=== PATIENT | female | born 1950 | race Caucasian/White ===

== ENCOUNTER 2023-11-03 11:01 | Emergency (ER) | payer BC, OTHER ==
[2023-11-03] MEDS ORDERED: ATROPINE SULFATE 1 MG/10 ML DISP.SYRIN ONE (11:12)
[2023-11-03] MEDS ORDERED: SODIUM CHLORIDE 0.9% 500 ML INFUS.BAG IV ONE (11:20)
[2023-11-03 11:29] VITALS: RESP 17; TEMP 98.1; BMI 28.2
[2023-11-03] MEDS ORDERED: ATROPINE SULFATE 1 MG/10 ML DISP.SYRIN IVPUSH ONE (11:31)
[2023-11-03 11:54] LABS: INR 1.07 (0.83-1.09); PROTHROMBIN TIME (PATIENT) 12.4 SEC (9.7-13.0)
[2023-11-03 11:57] LABS: ACTIVATED PTT 28.9 SECONDS (25.2-36.5); HEMATOCRIT 46.3 % (32.4-45.2); HEMOGLOBIN 16.1 G/dL (10.7-15.3); MCH 34.3 pg (25.7-33.7); MCHC 34.8 g/dl (32.0-36.0); MEAN CELL VOLUME 98.5 fl (80-96); MEAN PLT VOLUME 9.9 fl (7.5-11.1); PLATELET COUNT 153.8 10^3/uL (134-434); RDW 12.7 % (11.6-15.6); WHITE BLOOD COUNT 8.8 10^3/uL (4.0-10.8)
[2023-11-03 12:05] VITALS: BP 176/76; PULSE 62
[2023-11-03 12:05] LABS: ALBUMIN 4.2 g/dl (3.4-5.0); BILIRUBIN,TOTAL 0.6 mg/dl (0.2-1); CALCIUM 9.6 mg/dl (8.5-10.1); CREATININE 0.7 mg/dl (0.6-1.3); TOT PROT 6.8 g/dl (6.4-8.2)
[2023-11-03 12:07] LABS: PLATELET ESTIMATE ADEQUATE
== END 2023-11-03 12:05 | disposition short-term general hospital (02) ==
LOC: FER 11:01
PROC: 3E033NZ Introduction of Analgesics, Hypnotics, Sedatives into Peripheral Vein, Percutaneous Approach (ICD-10-PCS; principal; 2023-11-03)
DX: R00.1 Bradycardia, unspecified (principal); R42 Dizziness and giddiness; I44.1 Atrioventricular block, second degree; Z20.822 Contact with and (suspected) exposure to COVID-19
CPT/HCPCS: 0241U-QW; 36415; 71045-TC-FY; 80053; 84484; 85027; 85610; 85730; 86850; 86900; 86901; 93005; 93010; 99291

== ENCOUNTER 2024-02-06 12:52 | Observation (INO) | payer OTHER ==
[2024-02-06 13:30] VITALS: BMI 29.3
[2024-02-06 14:32] LABS: HEMATOCRIT 46.9 % (32.4-45.2); HEMOGLOBIN 15.8 G/dL (10.7-15.3); MCH 31.4 pg (25.7-33.7); MCHC 33.7 g/dl (32.0-36.0); MEAN CELL VOLUME 93.1 fl (80-96); MEAN PLT VOLUME 8.9 fl (7.5-11.1); PLATELET COUNT 171.8 10^3/uL (134-434); RBC 5.04 10^6/uL (3.60-5.2); RDW 13.2 % (11.6-15.6)
[2024-02-06 14:33] LABS: INR 0.96 (0.83-1.09)
[2024-02-06 14:36] LABS: ACTIVATED PTT 34.8 SECONDS (25.2-36.5)
[2024-02-06 14:43] LABS: ALBUMIN 4.3 g/dl (3.4-5.0); ALK PHOS 76 U/L (45-117); ANION GAP 12 mmol/L (4-13); BILIRUBIN,TOTAL 0.6 mg/dl (0.2-1); CALCIUM 9.7 mg/dl (8.5-10.1); CHLORIDE 100 mmol/L (98-107); CO2 28 mmol/L (21-32); CREATININE 0.7 mg/dl (0.6-1.3); GLUCOSE,RANDOM 108 mg/dl (74-106); MAGNESIUM 1.9 mg/dL (1.8-2.4); POTASSIUM 3.3 mmol/L (3.5-5.1); SGOT/AST 13 U/L (15-37); SGPT/ALT 10 U/L (7-52); SODIUM 140 mmol/L (136-145); TOT PROT 6.8 g/dl (6.4-8.2)
[2024-02-06 15:07] LABS: PLATELET ESTIMATE ADEQUATE
[2024-02-06] MEDS: POTASSIUM CHLORIDE ORAL LIQUID 20 MEQ/15 ML PO ONE (15:38)
[2024-02-06] MEDS ORDERED: ASPIRIN 81 MG CHEWABLE TABLETS ONE (17:35)
[2024-02-06] MEDS: ASPIRIN 81 MG CHEWABLE TABLETS PO ONE (17:37)
[2024-02-06 19:04] VITALS: RESP 18
[2024-02-07] MEDS: POTASSIUM CHLORIDE TABS 20 MEQ TABLET.ER (FP) PO ONE (07:25)
[2024-02-07 08:58] LABS: BASO % 0.6 % (0-2.0); EOS % 1.7 % (0-4.5); HEMATOCRIT 42.8 % (32.4-45.2); HEMOGLOBIN 14.6 GM/dL (10.7-15.3); LYMPH % 26.4 % (8-40); MCH 31.5 pg (25.7-33.7); MCHC 34.2 g/dl (32.0-36.0); MEAN CELL VOLUME 92.1 fl (80-96); MONO % 8.6 % (3.8-10.2); NEUT % 62.7 % (42.8-82.8); PLATELET COUNT 187 10^3/uL (134-434); RBC 4.64 M/mm3 (3.60-5.2); RDW 13.2 % (11.6-15.6); WHITE BLOOD COUNT 4.7 K/mm3 (4.0-10.0)
[2024-02-07 09:00] LABS: ANION GAP 9 mmol/L (4-13); CALCIUM 9.4 mg/dl (8.5-10.1); CHLORIDE 103 mmol/L (98-107); CO2 28 mmol/L (21-32); CREATININE 0.7 mg/dl (0.6-1.3); GLUCOSE,RANDOM 106 mg/dl (74-106); MAGNESIUM 1.9 mg/dL (1.8-2.4); POTASSIUM 3.8 mmol/L (3.5-5.1); SODIUM 140 mmol/L (136-145)
[2024-02-07] MEDS: ASPIRIN 81 MG CHEWABLE TABLETS PO SCH (10:12)
[2024-02-07 15:49] VITALS: BP 126/72; PULSE 76; TEMP 98
== END 2024-02-07 16:06 | disposition home or self-care (01) ==
LOC: FER 12:52 → FM/S 17:21
PROVIDERS: ADMIT Internal Medicine
DX: R74.8 Abnormal levels of other serum enzymes (principal); R55 Syncope and collapse; I10 Essential (primary) hypertension; Z95.0 Presence of cardiac pacemaker; Z88.0 Allergy status to penicillin; Z88.1 Allergy status to other antibiotic agents
CPT/HCPCS: 36415; 71046-TC-FY; 80048; 80053; 83735; 84443; 84484; 85025; 85027; 85610; 85730; 93005; 93306-TC; 97116-GP; 97161-GP; 99285-25; G0378